=== PATIENT | male | born 1955 | race Caucasian/White ===

== ENCOUNTER 2019-08-09 09:50 | Outpatient (CLI) | payer BC ==
[~2019-08-09] VITALS: Ht 175.3 cm; Wt 87.1 kg
[2019-08-09] MEDS ORDERED: SUMA100T16 PO (11:10)
[2019-08-09] MEDS ORDERED: ROSU20TA2 PO (11:10)
[2019-08-09] MEDS ORDERED: LOSA100T57 PO (11:10)
[2019-08-09] MEDS ORDERED: CITA20TA28 PO (11:10)
[2019-08-09 11:59] LABS: BASOPHILS % (AUTO) 0.8 % (0-1); EOSINOPHILS # (AUTO) 0.2 X10'3 (0-0.9); EOSINOPHILS % (AUTO) 5.1 % (0-6); LYMPHOCYTES % (AUTO) 22.2 % (21-51); MEAN CORPUSCULAR HEMOGLOBIN 28.9 PG (27.0-31.0); MEAN CORPUSCULAR HGB CONC 34.5 g/dL (33.0-36.5); MEAN CORPUSCULAR VOLUME 83.8 FL (78-98); MEAN PLATELET VOLUME 8.9 FL (7.4-10.4); MONOCYTES # (AUTO) 0.4 X10'3 (0-0.9); MONOCYTES % (AUTO) 8.5 % (2-12); NEUTROPHILS % (AUTO) 63.4 % (42-75); PRE OP HEMOGLOBIN 15.2 g/dL (14.0-17.9); PRE OP PLATELET COUNT 186 X10'3 (140-440); RED BLOOD COUNT 5.25 X10'6 (4.70-6.10); RED CELL DISTRIBUTION WIDTH 13.5 % (11.5-14.5)
[2019-08-09 12:10] LABS: PRE OP PROTIME 10.8 SECONDS (9.0-12.0)
[2019-08-09 12:14] LABS: ALBUMIN/GLOBULIN RATIO 1.2 (1.1-1.5); ALKALINE PHOSPHATASE 78 IU/L (46-116); BLOOD UREA NITROGEN 15 MG/DL (7-18); BUN/CREATININE RATIO 15.8 (5.4-32.0); CALCIUM 8.7 MG/DL (8.5-10.1); CHLORIDE 106 MMOL/L (99-107); CREATININE 0.95 MG/DL (0.60-1.10); PRE OP ALT 41 U/L (30-65); PRE OP ANION GAP 3 (8-16); PRE OP AST 23 U/L (10-37); PRE OP BILIRUB, TOTAL 0.6 MG/DL (0.0-1.0); PRE OP GLUCOSE 97 MG/DL (70-104); PRE OP SODIUM 137 MMOL/L (135-145); TOTAL CARBON DIOXIDE 27.8 MMOL/L (24-32); TOTAL PROTEIN 7.4 G/DL (6.4-8.2); eGFR 80 ML/MIN
[2019-08-10 08:43] LABS: BASOPHILS % (AUTO) 0.7 % (0-1); EOSINOPHILS # (AUTO) 0.3 X10'3 (0-0.9); EOSINOPHILS % (AUTO) 4.5 % (0-6); HEMATOCRIT 46.4 % (42.0-52.0); HEMOGLOBIN 16.1 g/dl (14.0-17.9); LYMPHOCYTES # (AUTO) 1.6 X10'3 (1.1-4.8); LYMPHOCYTES % (AUTO) 25.3 % (21-51); MEAN CORPUSCULAR HEMOGLOBIN 29.2 PG (27.0-31.0); MEAN CORPUSCULAR HGB CONC 34.8 g/dL (33.0-36.5); MEAN CORPUSCULAR VOLUME 83.9 FL (78-98); MEAN PLATELET VOLUME 9.3 FL (7.4-10.4); MONOCYTES # (AUTO) 0.5 X10'3 (0-0.9); MONOCYTES % (AUTO) 8.4 % (2-12); NEUTROPHILS # (AUTO) 3.9 X10'3 (1.8-7.7); NEUTROPHILS % (AUTO) 61.1 % (42-75); PLATELET COUNT 219 X10'3 (140-440); RED BLOOD COUNT 5.53 X10'6 (4.70-6.10); RED CELL DISTRIBUTION WIDTH 13.5 % (11.5-14.5); WHITE BLOOD COUNT 6.3 X10'3 (4.5-11.0)
[2019-08-10 08:48] LABS: PARTIAL THROMBOPLASTIN TIME 27 SECONDS (22-32)
[2019-08-10 08:51] LABS: ALANINE AMINOTRANSFERASE 38 U/L (12-78); ALBUMIN 4.2 G/DL (3.4-5.0); ALBUMIN/GLOBULIN RATIO 1.2 (1.1-1.5); ALKALINE PHOSPHATASE 82 IU/L (46-116); ANION GAP 9 (8-16); ASPARTATE AMINO TRANSFERASE 19 U/L (10-37); BILIRUBIN,TOTAL 0.6 MG/DL (0.1-1.0); BLOOD UREA NITROGEN 16 MG/DL (7-18); BUN/CREATININE RATIO 16.7 (5.4-32.0); CALCIUM 8.9 MG/DL (8.5-10.1); CHLORIDE 105 MMOL/L (99-107); CREATININE 0.96 MG/DL (0.60-1.10); GLUCOSE 104 MG/DL (70-104); POTASSIUM 4.1 MMOL/L (3.5-5.1); SODIUM 140 MMOL/L (135-145); TOTAL CARBON DIOXIDE 26.5 MMOL/L (24-32); TOTAL PROTEIN 7.7 G/DL (6.4-8.2); eGFR 79 ML/MIN
[2019-08-20] MEDS ORDERED: ringers solution, lacted 1,000 ML IV SCH (05:00)
[2019-08-20] MEDS ORDERED: famotidine 20mg tablet PO ONE (05:30)
[2019-08-20] MEDS ORDERED: albuterol 2.5 MG/3 ML nebule NEB ONE (05:30)
== END 2019-08-09 23:59 | disposition home or self-care (01) ==
LOC: PRE-OP 09:50 → EDSTATUS 08-20 12:45
PROVIDERS: ATTEND Otolaryngology
DX: Z01.818 Encounter for other preprocedural examination (principal); J34.2 Deviated nasal septum; J34.3 Hypertrophy of nasal turbinates; J32.2 Chronic ethmoidal sinusitis; J32.3 Chronic sphenoidal sinusitis; J32.0 Chronic maxillary sinusitis; D69.1 Qualitative platelet defects
CPT/HCPCS: 36415; 80053; 85025; 85576; 85610; 85730; 93005

== ENCOUNTER 2019-10-09 07:04 | Day surgery (SDC) | payer BC ==
[2019-10-08 10:47] LABS: BASOPHILS % (AUTO) 0.7 % (0-1); EOSINOPHILS # (AUTO) 0.3 X10'3 (0-0.9); EOSINOPHILS % (AUTO) 5.7 % (0-6); LYMPHOCYTES # (AUTO) 1.1 X10'3 (1.1-4.8); MEAN CORPUSCULAR HEMOGLOBIN 29.1 PG (27.0-31.0); MEAN CORPUSCULAR HGB CONC 34.3 g/dL (33.0-36.5); MEAN CORPUSCULAR VOLUME 84.8 FL (78-98); MEAN PLATELET VOLUME 8.9 FL (7.4-10.4); MONOCYTES # (AUTO) 0.4 X10'3 (0-0.9); MONOCYTES % (AUTO) 7.7 % (2-12); NEUTROPHILS # (AUTO) 3.4 X10'3 (1.8-7.7); NEUTROPHILS % (AUTO) 64.9 % (42-75); PRE OP HEMATOCRIT 46.1 % (42.0-52.0); PRE OP HEMOGLOBIN 15.8 g/dL (14.0-17.9); PRE OP PLATELET COUNT 171 X10'3 (140-440); RED BLOOD COUNT 5.44 X10'6 (4.70-6.10); RED CELL DISTRIBUTION WIDTH 13.4 % (11.5-14.5)
[2019-10-08 10:52] LABS: PRE OP INR 1.1 INR; PRE OP PROTIME 10.9 SECONDS (9.0-12.0)
[2019-10-08 10:55] LABS: ALBUMIN 4.2 G/DL (3.4-5.0); ALBUMIN/GLOBULIN RATIO 1.2 (1.1-1.5); ALKALINE PHOSPHATASE 71 IU/L (46-116); BLOOD UREA NITROGEN 16 MG/DL (7-18); BUN/CREATININE RATIO 19.8 (5.4-32.0); CALCIUM 8.8 MG/DL (8.5-10.1); CHLORIDE 106 MMOL/L (99-107); CREATININE 0.81 MG/DL (0.60-1.10); PRE OP ALT 26 U/L (30-65); PRE OP ANION GAP 8 (8-16); PRE OP AST 22 U/L (10-37); PRE OP BILIRUB, TOTAL 0.5 MG/DL (0.0-1.0); PRE OP GLUCOSE 99 MG/DL (70-104); PRE OP POTASSIUM 3.8 MMOL/L (3.4-5.1); PRE OP SODIUM 140 MMOL/L (135-145); TOTAL CARBON DIOXIDE 26.5 MMOL/L (24-32); TOTAL PROTEIN 7.6 G/DL (6.4-8.2); eGFR > 90 ML/MIN
[2019-10-09] VITALS (13 sets, daily range): BP systolic 107–150; BP diastolic 58–89
[~2019-10-09] VITALS: Ht 175.3 cm; Wt 87.1 kg
[~2019-10-09 07:04] MED LIST: CITA20TA28 PO; LOSA100T57 PO; ROSU20TA2 PO; SUMA100T16 PO; famotidine 20mg tablet PO ONE; ringers solution, lacted 1,000 ML IV SCH
[2019-10-09] MEDS ORDERED: cocaine 4% topical solution 4ml bottle ONE (09:59)
[2019-10-09] MEDS ORDERED: cefTAZidime 1gm inj ONE (10:00)
[2019-10-09] MEDS ORDERED: oxymetazoline 15 ML nasal spray NS ONE (10:00)
[2019-10-09] MEDS ORDERED: triamcinolone acetonide 40mg/ml inj ONE (10:00)
[2019-10-09] MEDS ORDERED: BUPIVAcaine 0.5% W/EPI /PF 30ml vial ONE (10:00)
[2019-10-09] MEDS ORDERED: LIDOcaine 1% W/epiNEPHrine 1:100,000 20ml vial ONE (10:00)
[2019-10-09] MEDS ORDERED: mupirocin 2% ointment 22GM ONE (10:00)
[2019-10-09] MEDS ORDERED: ringers solution, lacted 1,000 ML IV SCH (10:08)
[2019-10-09] MEDS ORDERED: HYDROmorphone inj. 0.5 MG/0.5 ML DISP.SYRIN IV PRN ×2 (10:10)
[2019-10-09] MEDS ORDERED: morphine 4 MG/ML inj SYRINge IV PRN (10:10)
[2019-10-09] MEDS ORDERED: ondansetron/PF 4mg/2ml inj IV PRN (10:10)
[2019-10-09] MEDS ORDERED: acetaminophen 1,000mg/100ml IV 100 ML IV PRN (10:10)
[2019-10-09] MEDS ORDERED: proCHLORperazine 10 MG/2 ml inj IV PRN (10:10)
[2019-10-09] MEDS ORDERED: morphine 2 MG/ML inj. syringe IV PRN (10:10)
[2019-10-09] MEDS ORDERED: meperidine/PF 25mg/ml syringe IV PRN (10:10)
[2019-10-09] MEDS ORDERED: sevoflurane 250ml liquid IH ONE (10:18)
[2019-10-09] MEDS ORDERED: fentaNYL/PF 50MCG/1 ML 2ML syringe ONE (10:24)
[2019-10-09] MEDS ORDERED: midazolam 2 mg/2 ml injection ONE (10:25)
[2019-10-09] MEDS ORDERED: propofol inj 20 ML IV ONE (10:39)
[2019-10-09] MEDS ORDERED: LIDOcaine 2% (20mg/ml) 5ml vial ONE (10:40)
[2019-10-09] MEDS ORDERED: dexamethasone sod phosphate 4mg/ml inj. ONE (10:45)
[2019-10-09] MEDS ORDERED: ondansetron/PF 4mg/2ml inj ONE (10:45)
[2019-10-09] MEDS ORDERED: ePHEDrine 50MG/ML INJ. ONE (12:00)
--- NOTE | 2019-10-09 12:38 | NUR ---
RECEIVED FROM OR VIA [facility] ACCOMPANIED BY ANESTHESIOLOGIST DR ALLRED, REPORT GIVEN. PT DROWSY BUT AROUSES EASILY AND STATES NO PAIN AT THIS TIME. 22 GAUGE PIV RIGHT HAND PATENT AND RUNNING LR AT 100 ML/HR. [place], SKIN PINK AND WARM, VSS, ABD SOFT, COTTENOIDS TO BILATERAL NARES CDI.
[2019-10-09] MEDS ORDERED: labetalol 20mg/4ml (5mg/ml) syringe IV PRN (12:45)
[2019-10-09] MEDS ORDERED: hydrALAZINE 20mg/ml inj. IV PRN (12:45)
[2019-10-09] MEDS ORDERED: oxymetazoline 15 ML nasal spray NS SCH ×2 (13:13→20:00)
[2019-10-09] MEDS ORDERED: mupirocin 2% ointment 22GM TP SCH (13:14)
[2019-10-09] MEDS ORDERED: losartan 50mg tablet PO ONE (13:15)
[2019-10-09] MEDS ORDERED: salt irrigation nasal spray 45 ML SPRAY NS PRN (13:15)
--- NOTE | 2019-10-09 14:38 | NUR ---
AWAKE, ALERT, DENIES PAIN,VSS,[place], 20 GAUGE PIV D/CD CATH TIP INTACT. MUSTACHE DRESSING WITH SCANT SS DRAINAGE, TOLERATING FLUIDS WELL, VOIDING WITH NO PROBLEM, D/C INSTRUCTIONS GIVEN, PT VERBALIZED UNDERSTANDING. TRANSFERRED VIA WHEELCHAIR TO IN PERSONAL VEHICLE TO HOME.
== END 2019-10-09 14:38 | disposition home or self-care (01) ==
LOC: PAS 07:04
PROVIDERS: ATTEND Otolaryngology
DX: J34.2 Deviated nasal septum (principal); J34.3 Hypertrophy of nasal turbinates; J32.8 Other chronic sinusitis; J33.8 Other polyp of sinus; I10 Essential (primary) hypertension; G43.909 Migraine, unspecified, not intractable, without status migrainosus; Z72.89 Other problems related to lifestyle; Z86.19 Personal history of other infectious and parasitic diseases; Z88.2 Allergy status to sulfonamides; Z79.01 Long term (current) use of anticoagulants; Z79.899 Other long term (current) drug therapy; Z11.59 Encounter for screening for other viral diseases
CPT/HCPCS: 30140; 30520; 31259; 31267; 36415; 61782; 80053; 82948; 85025; 85576; 85610; 85730; 87635; A6402; C9250; J0713; J1100; J2001; J2250; J2405; J2704; J3010; J3301; J7040; A4618; A7000; J7120